=== PATIENT | male | born 1965 | race Caucasian/White ===

== ENCOUNTER 2018-05-09 12:50 | Emergency (ER) | payer OTHER ==
--- NOTE | 2018-05-09 13:26 | EDPHY ---
H & P Stated Complaint: fell and hit head on back of work truck Time Seen by Provider: 05/09/18 13:04 HPI/ROS: CHIEF COMPLAINT: Headache, neck pain HISTORY OF PRESENT ILLNESS: Patient presents the ED with complaints of occipital headache and neck pain after he slipped and fell at work striking his head on the bumper of a vehicle. The patient has an unknown loss of consciousness. He reports moderate to severe headache. He also has midline cervical spine tenderness. The patient denies any chest pain, abdominal pain, difficulty breathing or other acute complaints. REVIEW OF SYSTEMS: Constitutional: normal mentation Eyes: No visual changes ENT: no oral trauma Respiratory: no rib pain, no difficulty breathing Cardiac: No chest pain Gastrointestinal: No nausea, no vomiting, no abdominal pain Genitourinary: No hematuria, no dysuria Musculoskeletal: As above Skin: no abrasions, no lacerations Neurological: As above Back: No midline pain thoracic or lumbar spine pain - Personal History Current Tetanus/Diphtheria Vaccine: Yes Current Tetanus Diphtheria and Acellular Pertussis (TDAP): Yes Tetanus Vaccine Date: < 10 years - Medical/Surgical History Hx Asthma: No Hx Chronic Respiratory Disease: No Hx Diabetes: No Hx Cardiac Disease: Yes Hx Renal Disease: No Hx Cirrhosis: No Hx Alcoholism: No Hx HIV/AIDS: No Hx Splenectomy or Spleen Trauma: No Other PMH: chronic back pain, migraines, BPH, hyperlipidemia - Social History Smoking Status: Current every day smoker Constitutional: Initial Vital Signs Temperature (C) 36.7 C 05/09/18 12:50 Heart Rate 99 05/09/18 12:50 Respiratory Rate 18 05/09/18 12:50 Blood Pressure 152/82 H 05/09/18 12:50 O2 Sat (%) 99 05/09/18 12:50 O2 Delivery Mode Room Air Allergies/Adverse Reactions: No Known Allergies Allergy (Unverified 05/09/18 12:53) Home Medications: Medication Instructions Recorded Amitriptyline HCl 05/09/18 Crestor 05/09/18 Flexeril 10 MG (*) 05/09/18 Flomax 05/09/18 Naprosyn 05/09/18 Oxycodone HCl 05/09/18 Medical Decision Making - Diagnostics Imaging Results: Imaging Impressions Cervical Spine CT 05/09/18 13:08 Impression: No acute intracranial process or cervical spine fracture/ subluxation. Mild paranasal sinus disease with trace fluid in the left mastoid air cells. Findings and recommendations discussed with Ramakrishna Dick at 1347 hour, 05/09. Head CT 05/09/18 13:08 Impression: No acute intracranial process or cervical spine fracture/ subluxation. Mild paranasal sinus disease with trace fluid in the left mastoid air cells. Findings and recommendations discussed with Ramakrishna Dick at 1347 hour, 05/09. ED Course/Re-evaluation: Patient presents the ED after mechanical fall for bites of a moderate to severe headache and midline cervical spine pain. The patient is neurologically intact. The patient was taken for CT scan of the head and cervical spine based upon my evaluation of his complaints. CT scan of the head and cervical spine are negative. I re-evaluated the patient at 2:00 p.m. and he is neurologically intact. The patient will be discharged home with a concussion aftercare instruction booklet. Differential Diagnosis: Differential diagnosis considered includes concussion, intracranial hemorrhage, cervical spine fracture, skull fracture Departure - Departure Disposition: Home, Routine, Self-Care Clinical Impression: Concussion, Cervical strain, acute Condition: Good Instructions: Cervical Strain (ED), Concussion (ED) Additional Instructions: 1. Concussion aftercare as prescribed 2. Take Ibuprofen or Motrin 600 mg by mouth three times a day. 3. Follow up with Work[employer] for any ongoing symptoms past 2-3 days.
[2018-05-09 14:11] VITALS: BP 150/74
== END 2018-05-09 14:11 | disposition home or self-care (01) ==
DX: S06.0X0A Concussion without loss of consciousness, initial encounter (principal); S16.1XXA Strain of muscle, fascia and tendon at neck level, initial encounter; W01.198A Fall on same level from slipping, tripping and stumbling with subsequent striking against other object, initial encounter; Y99.0 Civilian activity done for income or pay; Y92.9 Unspecified place or not applicable; Y93.9 Activity, unspecified